=== PATIENT | female | born 1970 | race Caucasian/White ===

== ENCOUNTER 2024-12-13 14:04 | Emergency (ER) | payer SELFPAY ==
[2024-12-13] MEDS ORDERED: Boostrix 0.5 ML (Tdap) VIAL (>/=7 yrs of age) ONE (14:33)
[2024-12-13] MEDS ORDERED: Rabies Vaccine Human 2.5 UNITS VIAL ONE (14:33)
[2024-12-13] MEDS ORDERED: Rabies Immune Globulin/PF 300 UNITS/ML VIAL ONE ×3 (14:34→14:39)
[2024-12-13] MEDS ORDERED: Ketorolac Tromethamine 30 MG (1 mL) VIAL ONE (14:40)
== END 2024-12-13 16:14 | disposition home or self-care (01) ==
LOC: ERS 14:04
DX: S71.051A Open bite, right hip, initial encounter (principal); Z23 Encounter for immunization; W54.0XXA Bitten by dog, initial encounter
CPT/HCPCS: 90375; 90471; 90675; 90715; 96372; J1885

== ENCOUNTER → 2024-12-16 | Emergency (ER) | payer SELFPAY ==
[~2024-12-16] MED LIST: Rabies Vaccine Human 2.5 UNITS VIAL ONE
== END ==
LOC: ER/OP 18:01
DX: Z23 Encounter for immunization (principal)
CPT/HCPCS: 90471; 90675

== ENCOUNTER → 2024-12-20 | Day surgery (SDC) | payer SELFPAY | LOC: ER/OP 08:59 | PROVIDERS: ATTEND Student in an Organized Health Care Education/Training Program | DX: Z29.14 Encounter for prophylactic rabies immune globulin (principal) | CPT/HCPCS: 90471; 90675 ==